=== PATIENT | male | born 1935 | race Caucasian/White ===

== ENCOUNTER 2017-06-13 02:31 | Inpatient (IN) | payer OTHER ==
[~2017-06-13] VITALS: Ht 162.6 cm; Wt 55.0 kg
[2017-06-13] VITALS (11 sets, daily range): BP systolic 110–139; BP diastolic 65–73; PULSE 90–100; RESP 18–20; Ht 162.6 cm; Wt 55.0 kg
[2017-06-13] MEDS ORDERED: ALLO100T PO (05:08)
[2017-06-13] MEDS ORDERED: DOCU-159 PO (05:08)
[2017-06-13] MEDS ORDERED: CALC-223 PO (05:08)
[2017-06-13] MEDS ORDERED: [UNRECOGNIZED DRUG - CODE] PO (05:08)
[2017-06-13] MEDS ORDERED: LEUP45SY IM (05:08)
[2017-06-13] MEDS ORDERED: TAMS0.4C2 PO (05:08)
[2017-06-13] MEDS ORDERED: ASCO250T3 PO (05:08)
[2017-06-13] MEDS ORDERED: HYDR-906 PO (05:08)
[2017-06-13] MEDS ORDERED: morphine 2 MG INJ IV PRN ×2 (05:30→07:00)
[2017-06-13] MEDS ORDERED: ONDANSETRON 4 MG INJ IV PRN ×2 (05:30→07:00)
[2017-06-13] MEDS ORDERED: NACL 0.9% 3 ML SYG IV SCH (07:00)
[2017-06-13] MEDS ORDERED: ACETAMINOPHEN 325 MG TAB PO PRN (07:00)
[2017-06-13] MEDS ORDERED: ALBUTEROL/IPRATROPIUM (NEB) 3 ML AMP HHN PRN (07:00)
[2017-06-13 07:22] LABS: ABNORMAL IP MESSAGE 1; BASOPHILS % 0.3 % (0.0-2.0); EOSINOPHILS # 0.1 10^3/ul (0.0-0.5); EOSINOPHILS % 0.9 % (0.0-7.0); LYMPHOCYTES # 0.8 10^3/ul (0.8-2.9); LYMPHOCYTES % 13.7 % (15.0-51.0); MEAN CORPUSCULAR VOLUME 102.7 fl (82.0-101.0); MEAN PLATELET VOLUME 9.7 fl (7.4-10.4); MONOCYTE # 0.4 10^3/ul (0.3-0.9); NEUTROPHIL # 3.9 10^3/ul (1.6-7.5); NEUTROPHILS % 66.1 % (39.0-77.0); NUCLEATED RED BLOOD CELLS # 0.3 10^3/ul (0.0-0.0); NUCLEATED RED BLOOD CELLS% 4.3 /100WBC (0.0-0.0); PLATELET COUNT 42 10^3/UL (140-415); POSITIVE DIFF @See below; RED CELL DISTRIBUTION WIDTH 20.8 % (11.5-14.5); WHITE BLOOD COUNT 5.9 10^3/ul (4.8-10.8)
[2017-06-13 07:27] LABS: HEMOGLOBIN 6.5 g/dl (14.0-18.0)
[2017-06-13 07:38] LABS: IRON 51 ug/dl (35-150)
[2017-06-13 07:40] LABS: ALBUMIN 3.3 g/dl (3.3-4.9); ALBUMIN/GLOBULIN RATIO 0.91; BILIRUBIN,INDIRECT 0.3 mg/dl (0-1.1); BILIRUBIN,TOTAL 0.3 mg/dl (0.2-1.3); CALCIUM 8.7 mg/dl (8.4-10.2); CREATININE 2.67 mg/dl (0.61-1.24); POTASSIUM 4.7 mmol/L (3.5-5.1); TOTAL PROTEIN 6.9 g/dl (6.1-8.1)
[2017-06-13 07:47] LABS: TOTAL IRON BINDING CAPACITY 226 ug/dl (241-421)
[2017-06-13] MEDS: LEVOFLOXACIN 500MG/D5W (PMX) 100 ML IVPB SCH (08:11)
[2017-06-13] MEDS: HEPARIN 5,000 UNIT/0.5 ML VIAL SC SCH ×2 (09:00→21:06)
--- NOTE | 2017-06-13 15:30 | RADRPT ---
PROCEDURE: XR chest CLINICAL INDICATION: Fever TECHNIQUE: PA and lateral views COMPARISON: None available FINDINGS: The cardiac silhouette, mediastinum, and pulmonary ilan are unremarkable except for thoracic aorta a therosclerotic mural calcifications. Pulmonary vasculature is within normal limits. Minimal blunting of both costophrenic sulci could be secondary to small amount of fluid versus pleur al thickening. The lung parenchyma is unremarkable (portions of both lower lobes are not included o n the PA radiograph). Spondylosis of the visualized spine. The osseous structures are diffusely demineralized. IMPRESSION: Bilateral costophrenic sulci minimal blunting could be secondary to small amount of fluid versus ple ural thickening RPTAT: TT Physician Dayna Date Time Electronically viewed and signed by Thompson Frye Physician on 06/13/2017 15:30 JS/
[2017-06-13] MEDS: ALLOPURINOL 100 MG TAB PO SCH (17:19)
[2017-06-13] MEDS: SOD CHLORIDE 0.45% 1,000 ML IV SCH (17:19)
[2017-06-13] MEDS: ASCORBIC ACID 250 MG TAB PO SCH (18:12)
[2017-06-13] MEDS ORDERED: HYDROCODONE/APAP (5/325) TAB PO PRN (20:00)
[2017-06-13] MEDS ORDERED: ACETAMINOPHEN 325 MG TAB PO ONE (20:30)
[2017-06-13] MEDS ORDERED: DIPHENHYDRAMINE 25 MG CAP PO ONE (20:30)
[2017-06-13] MEDS: DOCUSATE SODIUM 100 MG CAP PO SCH (20:59)
[2017-06-13] MEDS ORDERED: TAMSULOSIN (SR) 0.4 MG CAP PO SCH (21:00)
--- NOTE | 2017-06-13 23:52 | HP ---
Date/Time of Note Date/Time of Note DATE: 06/13/17 TIME: 23:52 Assessment/Plan VTE Prophylaxis VTE Prophylaxis Intervention: SCD's Lines/Catheters IV Catheter Type (from Nrs): Saline Lock Urinary Cath still in place: Yes Assessment/Plan Assessment/Plan 1. Bicytopenia, was anemia and thrombocytopenia: ? Chemo induced -Transfuse PRBCs -Check ferritin, iron and FOBT 2. Fever, at [facility] -Likely secondary to UTI given indwelling Brown -Check UA, urine culture, blood culture - Empiric IV antibiotic 3. Prostate cancer with indwelling Brown catheter -Continue Lupron and tamsulosin -Patient will follow-up with his outpatient oncologist. HPI/ROS Admit Date/Time Admit Date/Time Jun 13, 2017 at 04:44 Hx of Present Illness This is an 81-year-old male with a history of hypertension and prostate cancer was indwelling Brown who initially presented to [facility]. Patient was transferred to [facility] for insurance reasons. He was found to be febrile with a temperature of 103 with a WBC of around 6.5. According to the ER physician that I talked to, about a month ago patient was seen at the facility. At that time he had hemoglobin of above 12 but now with the 6.5. He is also thrombocytopenic with a platelet of 43. No reported GI bleed and guaiac was negative and vitals were stable at [facility]. PMH/Family/Social Social History Smoking Status: Former smoker Exam/Review of Systems Vital Signs Vitals Vital Signs Date Time Temp Pulse Resp B/P Pulse Ox O2 Delivery O2 Flow Rate FiO2 06/13/17 23:45 98.0 81 20 110/65 96 06/13/17 04:48 Room Air Exam Constitutional: other (No acute distress) Head: atraumatic, normocephalic Eyes: PERRL Respiratory: clear to auscultation, normal air movement Cardiovascular: nl pulses, regular rate and rhythm Gastrointestinal: non-tender, soft Genitourinary - Male: other (Brown in place) Extremities: normal pulses Labs Result Diagram: 06/13/17 0641 06/13/17 0641 Medications Medications Current Medications Ondansetron HCl (Zofran Inj) 4 mg Q6H PRN IV NAUSEA AND/OR VOMITING; Start at 07:00 Acetaminophen (Tylenol Tab) 650 mg Q6H PRN PO PAIN LEVEL 1-3 OR FEVER; Start 06/13/17 at 07:00 Morphine Sulfate (morphine) 2 mg Q4H PRN IV PAIN LEVEL 7-10; Start 06/13/17 at 07:00 Heparin Sodium (Porcine) 5000 unit 5,000 unit Q12 SC Last administered on 06/13 21:06; Admin Dose 5,000 UNIT; Start 06/13/17 at 09:00 Levofloxacin/ Dextrose (Levaquin 500mg/ D5W 100 ml (Pmx)) 100 ml @ 100 mls/hr Q24H IVPB Last administered on 06/13/17 08:11; Admin Dose 100 MLS/HR; Start 06/13/17 at 07:00 Allopurinol (Zyloprim) 100 mg DAILY PO Last administered on 06/13/17 17:19; Admin Dose 100 MG; Start 06/13/17 at 17:00 Ascorbic Acid (Vitamin C) 500 mg DAILY PO Last administered on 06/13/17 18:12 ; Admin Dose 500 MG; Start 06/13/17 at 17:00 Docusate Sodium (Colace) 100 mg BID PO Last administered on 06/13/17 20:59; Admin Dose 100 MG; Start 06/13/17 at 21:00 Tamsulosin HCl 0.4 mg 0.4 mg HS PO Last administered on 06/13/17 20:58; Admin Dose 0.4 MG; Start 06/13/17 at 21:00 Sodium Chloride (1/2 NS) 1,000 ml @ 100 mls/hr Q10H IV Last administered on 17:19; Admin Dose 100 MLS/HR; Start 06/13/17 at 17:00 Acetaminophen/ Hydrocodone Bitart (Art (5/325)) 1 tab Q4H PRN PO PAIN; Start 06/13/17 at 20:00 ANA DYE MD Jun 13, 2017 23:52
[2017-06-13 23:56] LABS: ADD UMIC YES; UR ASCORBIC ACID NEGATIVE (NEGATIVE); UR BILIRUBIN (Dip) NEGATIVE (NEGATIVE); UR BLOOD (Dip) 2+ mg/dL (NEGATIVE); UR CLARITY SLIGHTLY CLOUDY (CLEAR); UR COLOR YELLOW (YELLOW); UR GLUCOSE (Dip) NEGATIVE (NEGATIVE); UR KETONES (Dip) NEGATIVE (NEGATIVE); UR LEUKOCYTE ESTERASE (Dip) 3+ Leu/ul (NEGATIVE); UR NITRITE (Dip) NEGATIVE (NEGATIVE); UR RBC 0 /HPF (0-5); UR TOTAL PROTEIN (Dip) 2+ mg/dl (NEGATIVE); UR UROBILINOGEN (Dip) NEGATIVE (NEGATIVE)
[2017-06-14] VITALS (7 sets, daily range): BP systolic 121–129; BP diastolic 60–72; PULSE 80–84; RESP 16–21
[2017-06-14] MEDS: SOD CHLORIDE 0.45% 1,000 ML IV SCH (03:00)
[2017-06-14] MEDS: LEVOFLOXACIN 500MG/D5W (PMX) 100 ML IVPB SCH (06:52)
[2017-06-14 07:15] LABS: ALBUMIN/GLOBULIN RATIO 0.88; BILIRUBIN,INDIRECT 0.6 mg/dl (0-1.1); BILIRUBIN,TOTAL 0.6 mg/dl (0.2-1.3); CALCIUM 8.4 mg/dl (8.4-10.2); CREATININE 2.59 mg/dl (0.61-1.24); POTASSIUM 4.4 mmol/L (3.5-5.1); TOTAL PROTEIN 6.4 g/dl (6.1-8.1)
[2017-06-14 07:33] LABS: ABNORMAL IP MESSAGE 1; HEMATOCRIT 25.5 % (42.0-52.0); HEMOGLOBIN 8.8 g/dl (14.0-18.0); MEAN CORPUSCULAR HEMOGLOBIN 31.3 pg (29.0-33.0); MEAN CORPUSCULAR HGB CONC 34.5 g/dl (32.0-37.0); MEAN CORPUSCULAR VOLUME 90.7 fl (82.0-101.0); MEAN PLATELET VOLUME 9.6 fl (7.4-10.4); NUCLEATED RED BLOOD CELLS% 4.4 /100WBC (0.0-0.0); POSITIVE DIFF @See below; RED BLOOD COUNT 2.81 10^6/ul (4.70-6.10); RED CELL DISTRIBUTION WIDTH 14.5 % (11.5-14.5); WHITE BLOOD COUNT 6.6 10^3/ul (4.8-10.8)
[2017-06-14 07:34] LABS: PLATELET COUNT 36 10^3/UL (140-415)
[2017-06-14 08:33] LABS: ANISOCYTOSIS 1+ (0-0); BASOPHILS % (M) 1 % (0-2); BURR CELLS 1+ (0-0); EOSINOPHILS % (M) 1 % (0-7); ERYTHROBLAST% (NRBC) (M) 6 % (0-0); METAMYELOCYTES %M 3 % (0-0); MICROCYTOSIS 1+ (0-0); MONOCYTES % (M) 8 % (0-11); OVALOCYTES 1+ (0-0); PLATELET ESTIMATE SIG DECREASED; POIKILOCYTOSIS 2+ (0-0); POLYCHROMASIA 1+ (0-0)
[2017-06-14] MEDS: DOCUSATE SODIUM 100 MG CAP PO SCH (08:50)
[2017-06-14] MEDS: ALLOPURINOL 100 MG TAB PO SCH (08:51)
[2017-06-14] MEDS: ASCORBIC ACID 250 MG TAB PO SCH (08:51)
[2017-06-14 09:00] LABS: RED BLOOD COUNT 1.97 10^6/ul (4.70-6.10)
[2017-06-14] MEDS: HEPARIN 5,000 UNIT/0.5 ML VIAL SC SCH (09:00)
[2017-06-14 09:01] LABS: HEMATOCRIT 20.1 % (42.0-52.0)
[2017-06-14 09:02] LABS: MEAN CORPUSCULAR HGB CONC 32.3 g/dl (32.0-37.0)
[2017-06-14] MEDS ORDERED: CIPR500T4 PO (10:01)
--- NOTE | 2017-06-14 10:02 | PDOCDIS ---
Discharge Instructions CONDITION Patient Condition: Good HOME CARE INSTRUCTIONS: Diet Instructions: Regular ACTIVITY: Activity Restrictions: No Restrictions FOLLOW UP/APPOINTMENTS Follow-up Plan F/U WITH YOUR PHYSICIANS SCHEDULED LAURO WOODS Jun 14, 2017 10:02
--- NOTE | 2017-06-14 12:05 | DS ---
Date/Time of Note Date/Time of Note DATE: 06/14/17 TIME: 11:58 Discharge Summary Admission/Discharge Info Admit Date/Time Jun 13, 2017 at 04:44 Discharge Date/Time 1. 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 UTI DC with Cipro 3. History of prostate cancer status post radiation with indwelling Brown catheter -Once again patient was advised to follow-up with his urologist and to have his Brown catheter removed if able 4. Deconditioning Home health with PT Patient advised to ambulate more often Patient Condition: Good Hospital Course Patient is an 81-year-old male with a history of hypertension and prostate cancer was indwelling Brown who initially presented to [facility] and was transferred for insurance reasons. Patient was found to be febrile with a temperature at 103, he was also noted to be anemic and was found to have thrombocytopenia. Patient was transfused 2 units of packed red blood cells, his iron panel suggested anemia of chronic disease which is likely from his history of prostate cancer as well as chronic UTIs from his chronic indwelling Brown catheter. Patient's chemotherapy was likely secondary to history of radiation. Patient stool guaiac was negative and he denied melena hence there was no suggestion of a GI bleed, urine was normal with no blood. Patient was given IV antibiotics in house, he had no further fevers, his hemoglobin did improve after 2 units and was felt to be stable for DC. Patient and his daughter were strongly advised to remove the Brown catheter if able. According to daughter his urologist has suggested removal of the Brwon catheter in the past but patient has refused as he states that it is more convenient to keep the Brown catheter in. Patient was also advised to increase his activity as he is deconditioned. On the day of discharge patient's vitals, labs and physical exam are stable he had no acute complaints and questions were answered. Home Meds Active Scripts Ciprofloxacin Hcl* (Ciprofloxacin Hcl*) 500 Mg Tablet, 500 MG PO BID for 5 Days , #10 TAB Prov:LAURO WOODS 06/14/17 Reported Medications Ascorbic Acid* (Ascorbic Acid*) 250 Mg Tablet, 500 MG PO DAILY, TAB 06/13/17 Vitamin E (Vitamin E) 1,150 Unit/1.25 Ml Liquid, 4000 UNIT PO DAILY 06/13/17 Calcium Carbonate-Vitamin D3 (Calcium 1,000 + D3) 1 Each Tablet, 1 TAB PO BID, TAB 06/13/17 Allopurinol* (Allopurinol*) 100 Mg Tablet, 100 MG PO DAILY, TAB 06/13/17 Tamsulosin Hcl* (Tamsulosin Hcl*) 0.4 Mg Cap.er.24h, 0.4 MG PO HS, CAP 06/13/17 Leuprolide Acetate (LUPRON DEPOT) 45 Mg Syringekit, 45 MG IM Q6 MONTH 06/13/17 Hydrocodone/Acetaminophen ([place]on 5-325 Tablet) 1 Each Tablet, 1 EACH PO Q6 Y for PAIN, TAB 06/13/17 Docusate Sodium* (Docusate Sodium*) 100 Mg Capsule, 100 MG PO BID, #60 CAP 06/13/17 Follow-up Plan F/U WITH YOUR PHYSICIANS SCHEDULED Primary Care Provider Not On Staff Doctor Time spent on discharge: > 30 minutes LAURO WOODS Jun 14, 2017 12:05
== END 2017-06-14 12:05 | disposition home or self-care (01) | DRG 809 ==
LOC: TEL 04:44
PROVIDERS: ADMIT Internal Medicine; ATTEND Internal Medicine
PROC: 30233N1 Transfusion of Nonautologous Red Blood Cells into Peripheral Vein, Percutaneous Approach (ICD-10-PCS; principal; 2017-06-13)
DX: D61.818 Other pancytopenia (principal); N39.0 Urinary tract infection, site not specified; D50.0 Iron deficiency anemia secondary to blood loss (chronic); I10 Essential (primary) hypertension; Z85.46 Personal history of malignant neoplasm of prostate
CPT/HCPCS: 36430; 71020; 80053; 81001; 82270; 82728; 83540; 83615; 83735; 84100; 85025; 86850; 86870; 86900; 86901; 86920; 87040; 87086; J1644; J1956; P9016